=== PATIENT | female | born 1990 | race Caucasian/White ===

== ENCOUNTER → 2018-01-22 08:42 | Emergency (ER) | payer SELFPAY ==
--- NOTE | 2018-01-23 15:16 | UC ---
Discharge - Sign-Out/Discharge Documenting (check all that apply): Post-Discharge Follow Up All imaging exams completed and their final reports reviewed: No Studies - Discharge Plan Disposition: HOME Referrals: No Primary Care Phys,NOPCP [Primary Care Provider] - - Billing Disposition and Condition Disposition: Home
== END | disposition home or self-care (01) ==
LOC: OHCORT 08:42
DX: Z00.00 Encounter for general adult medical examination without abnormal findings (principal)

== ENCOUNTER → 2019-02-10 09:00 | Emergency (ER) | payer SELFPAY | END | disposition home or self-care (01) | LOC: OHCORT 09:00 | DX: Z00.00 Encounter for general adult medical examination without abnormal findings (principal) ==

== ENCOUNTER 2019-07-05 12:00 | Emergency (ER) | payer OTHER ==
--- NOTE | 2019-07-05 12:34 | UC ---
Respiratory Complaint HPI - HPI Summary HPI Summary: 29 yo female with 1 day hx of fever/chills with severe sore throat no cough no n/v/d able to swallow solids able to swallow liquids but very painfully daughter with recent URI T max >103 +CABRERA - History of Current Complaint Stated Complaint: FEVER,ST,CABRERA,EAR PAIN Time Seen by Provider: 07/05/19 12:33 Hx Obtained From: Patient Hx Last Menstrual Period: 08/27/15 Onset/Duration: Gradual Onset, Lasting Hours Timing: Constant Severity Initially: Moderate Severity Currently: Severe Pain Intensity: 10 Pain Scale Used: 0-10 Numeric Aggravating Factors: Nothing Alleviating Factors: Nothing Associated Signs And Symptoms: Positive: Fever, Chills - Allergies/Home Medications Allergies/Adverse Reactions: Allergies Allergy/AdvReac Type Severity Reaction Status Date / Time No Known Allergies Allergy Verified 07/05/19 12:31 Home Medications: Home Medications Cephalexin CAP* [Keflex CAP*] 500 mg PO BID #20 cap 07/05/19 [Rx] predniSONE [Prednisone 20 MG TAB] 60 mg PO DAILY #6 tab 07/05/19 [Rx] PMH/Surg Hx/FS Hx/Imm Hx Previously Healthy: Yes - Surgical History Surgical History: None Surgery Procedure, Year, and Place: - Family History Known Family History: Positive: Hypertension - Social History Alcohol Use: None Substance Use Type: None Smoking Status (MU): Never Smoked Tobacco Review of Systems All Other Systems Reviewed And Are Negative: Yes Constitutional: Positive: Fever, Chills Skin: Positive: Negative Eyes: Positive: Negative ENT: Positive: Sore Throat Respiratory: Positive: Negative Cardiovascular: Positive: Negative Gastrointestinal: Positive: Negative Genitourinary: Positive: Negative Motor: Positive: Negative Neurovascular: Positive: Negative Musculoskeletal: Positive: Negative Neurological/Mental Status: Positive: Headache Psychological: Positive: Negative Physical Exam Triage Information Reviewed: Yes Appearance: Well-Appearing, No Pain Distress, Well-Nourished Vital Signs Reviewed: Yes Respiratory Course/Dx - Differential Dx/Diagnosis Provider Diagnosis: Acute pharyngitis Discharge ED - Sign-Out/Discharge Documenting (check all that apply): Patient Departure All imaging exams completed and their final reports reviewed: No Studies - Discharge Plan Condition: Stable Disposition: HOME Prescriptions: Cephalexin CAP* [Keflex CAP*] 500 mg PO BID #20 cap predniSONE [Prednisone 20 MG TAB] 60 mg PO DAILY #6 tab Patient Education Materials: Pharyngitis (ED) Referrals: No Primary Care Phys,NOPCP [Primary Care Provider] - Additional Instructions: culture pending recheck in 2 days if not better - Billing Disposition and Condition Condition: STABLE Disposition: Home
[2019-07-05 12:35] VITALS: BP 119/76
[2019-07-05 12:55] LABS: Influenza A Molecular Negative (Negative); Influenza B Molecular Negative (Negative)
--- NOTE | 2019-07-08 07:38 | UC ---
- Progress Note Progress Note: Please call to advise that throat culture was negative for bacterial growth. She can stop use of antibiotic. Course/Dx - Diagnoses Provider Diagnoses: Acute pharyngitis Discharge ED - Sign-Out/Discharge Documenting (check all that apply): Post-Discharge Follow Up All imaging exams completed and their final reports reviewed: No Studies - Discharge Plan Condition: Stable Disposition: HOME Prescriptions: Cephalexin CAP* [Keflex CAP*] 500 mg PO BID #20 cap predniSONE [Prednisone 20 MG TAB] 60 mg PO DAILY #6 tab Patient Education Materials: Pharyngitis (ED) Referrals: No Primary Care Phys,NOPCP [Primary Care Provider] - Additional Instructions: culture pending recheck in 2 days if not better - Billing Disposition and Condition Condition: STABLE Disposition: Home
== END 2019-07-05 13:37 | disposition home or self-care (01) ==
LOC: UCCORT 12:00
DX: J02.9 Acute pharyngitis, unspecified (principal)
CPT/HCPCS: 87070; 87077; 87651; 99212; G0463; J7512

== ENCOUNTER 2019-07-09 07:04 | Emergency (ER) | payer OTHER ==
[2019-07-09 07:16] VITALS: BP 112/78
--- NOTE | 2019-07-09 07:21 | UC ---
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 Initial temp to 103 on 07/03, followed by progressive sore throat and malaise. Improved with prednisone, finished steroid x 2 days ago. Chest feels sore even to light touch. Appetite decreased. Mild abdominal discomfort, but no nausea, vomiting or diarrhea. - History of Current Complaint Chief Complaint: UCGeneralIllness Stated Complaint: THROAT,CHEST CONGESTION Time Seen by Provider: 07/09/19 07:20 Hx Obtained From: Patient Hx Last Menstrual Period: 08/27/15 Onset/Duration: Gradual Onset Timing: Constant Severity Initially: Moderate Severity Currently: Moderate Pain Intensity: 8 Character: Cough: Nonproductive Aggravating Factors: Recumbent Position Alleviating Factors: Nothing Associated Signs And Symptoms: Positive: Dyspnea, Fever - now decreased, Nasal Congestion, Hoarseness - Risk Factors Pulmonary Embolism Risk Factors: Negative Cardiac Risk Factors: Negative - Allergies/Home Medications Allergies/Adverse Reactions: Allergies Allergy/AdvReac Type Severity Reaction Status Date / Time No Known Allergies Allergy Verified 07/09/19 07:15 Home Medications: Home Medications Dextromethorphn/Acetaminoph/Cp [Vicks Nyquil Cold & Flu N] 1 liq PO ONCE PRN [History Confirmed 07/09/19] Ibuprofen TAB* [Advil TAB*] 200 mg PO Q6H PRN 07/09/19 [History Confirmed ] predniSONE [Prednisone 20 MG TAB] 40 mg PO DAILY #10 tablet 07/09/19 [Rx] PMH/Surg Hx/FS Hx/Imm Hx Previously Healthy: Yes - Surgical History Surgical History: Yes Surgery Procedure, Year, and Place: x2 - Family History Known Family History: Positive: Hypertension - Social History Occupation: Employed Full-time - [employer] Lives: With Family Alcohol Use: None Substance Use Type: None Smoking Status (MU): Never Smoked Tobacco Review of Systems All Other Systems Reviewed And Are Negative: Yes Constitutional: Positive: Fever, Fatigue Skin: Positive: Negative. Negative: Rash Eyes: Positive: Negative ENT: Positive: Sore Throat, Ear Ache Respiratory: Positive: Shortness Of Breath, Cough Cardiovascular: Positive: Chest Pain. Negative: Palpitations Gastrointestinal: Positive: Negative Genitourinary: Positive: Negative Motor: Positive: Negative Neurovascular: Positive: Negative Musculoskeletal: Positive: Negative Neurological/Mental Status: Positive: Negative Psychological: Positive: Negative Is Patient Immunocompromised?: No Physical Exam Triage Information Reviewed: Yes Appearance: Ill-Appearing - congested, looks mildly unwell Vital Signs: Initial Vital Signs Temp 99.3 F 07/09/19 07:11 Pulse 86 07/09/19 07:11 Resp 18 07/09/19 07:11 BP 112/78 07/09/19 07:11 Pulse Ox 100 07/09/19 07:11 Eyes: Positive: Conjunctiva Clear ENT: Positive: Pharyngeal erythema, Tonsillar swelling. Negative: Tonsillar exudate Dental Exam: Normal Neck: Positive: Supple, Enlarged Nodes @ - tonsillar nodes mildly enlarged, no anterior/posterior cervical or occipital nodes. Respiratory: Positive: Lungs clear, Normal breath sounds, No respiratory distress Cardiovascular: Positive: RRR, No Murmur, Pulses Normal Abdomen Description: Positive: Soft, Other: - Scooter's space dull, cannot palpate enlarged spleen. Negative: Distended, Guarding, Hepatomegaly Musculoskeletal Exam: Normal Neurological: Positive: Alert, Muscle Tone Normal Psychological Exam: Normal Skin Exam: Normal Diagnostics - Radiology No standard instances Radiology Interpretation Completed By: Radiologist - No acute process per Dr. Olson. Respiratory Course/Dx - Course Course Of Treatment: prednisone for sore throat. Await labs. CXR negative for pneumonia. - Differential Dx/Diagnosis Differential Diagnosis/HQI/PQRI: Influenza, Laryngitis, Lower Resp Infection, Sinusitis, Other - mono Provider Diagnosis: Viral syndrome Discharge ED - Sign-Out/Discharge Documenting (check all that apply): Patient Departure All imaging exams completed and their final reports reviewed: Yes - Discharge Plan Condition: Stable Disposition: HOME Prescriptions: predniSONE [Prednisone 20 MG TAB] 40 mg PO DAILY #10 tablet Patient Education Materials: Viral Syndrome (ED) Referrals: No Primary Care Phys,NOPCP [Primary Care Provider] - Additional Instructions: Possible causes of your illness include mono, and testing is pending. You were given 60mg of prednisone this morning; next dose is due tomorrow morning--take 40mg once daily with breakfast x 5 days. Results of lab work will be available tomorrow morning. Typically you would be called with results, but you can call in if you have not had a report. Continue high intake of fluids, rest, and use ibuprofen as needed for control of fever. - Billing Disposition and Condition Condition: STABLE Disposition: Home
[2019-07-09 11:21] LABS: Albumin 4.1 g/dL (3.2-5.2); Calcium 8.9 mg/dL (8.6-10.3); Potassium 3.3 mmol/L (3.5-5.0); Total Bilirubin 0.4 mg/dL (0.2-1.0)
[2019-07-09 11:27] LABS: Albumin/Globulin Ratio 1.8 (1-3); BUN/Creatinine Ratio 21.4 (8-20); EGFR African American 121.5 (>60); EGFR Non-African American 100.4 (>60); Globulin 2.3 g/dL (2-4); Total Protein 6.4 g/dL (6.4-8.9)
[2019-07-09 11:31] LABS: ABS Basophils 0.1 10^3/ul (0-0.2); ABS Eosinophils 0.1 10^3/ul (0-0.6); ABS Lymphocytes 3.6 10^3/ul (1.0-4.8); ABS Monocytes 0.7 10^3/ul (0-0.8); ABS Neutrophils 4.6 10^3/ul (1.5-7.7); Eosinophil % 0.6 %; Hematocrit 35 % (35-47); Hemoglobin 11.5 g/dL (12.0-16.0); Lymphocyte % 40.1 %; Mean Corpuscular HGB Conc 32 g/dL (31-36); Mean Corpuscular Hemoglobin 27 pg (27-31); Mean Corpuscular Volume 84 fL (80-97); Mean Platelet Volume 9.3 fL (7.4-10.4); Platelet Count 290 10^3/uL (150-450); Red Blood Count 4.21 10^6 /uL (3.70-4.87); Red Cell Distribution Width 15 % (10-15); White Blood Count 9.1 10^3/uL (3.5-10.8)
== END 2019-07-09 08:43 | disposition home or self-care (01) ==
LOC: UCCORT 07:04
DX: B34.9 Viral infection, unspecified (principal); J02.9 Acute pharyngitis, unspecified; R53.83 Other fatigue; R06.02 Shortness of breath; R05 Cough; R06.00 Dyspnea, unspecified; R09.81 Nasal congestion; H92.09 Otalgia, unspecified ear
CPT/HCPCS: 36415; 71046; 80053; 85025; 86308; 99212; G0463; J7512